=== PATIENT | female | born 1940 | race Caucasian/White ===

== ENCOUNTER 2019-06-20 12:13 | Emergency (ER) | payer MEDICARE ==
--- NOTE | 2019-06-20 12:53 | RAD ---
XR Chest 1 View Portable HISTORY: Shortness of breath COMPARISON: 02/20/2014 study FINDINGS: Heart size appears slightly enlarged with atherosclerotic changes of aorta. COPD changes ar e present. Bilateral breast augmentation is noted. IMPRESSION: Borderline to minimal cardiomegaly with chronic lung change.
[2019-06-20 12:56] LABS: #Basophils 0.1 thou/uL (0.0-0.2); #Lymphocytes 1.1 thou/uL (1.20-3.40); #Monocytes 0.4 thou/uL (0.11-0.59); #Neutrophils 3.2 thou/uL (1.40-6.50); %Basophils 2.2 % (0.0-1.0); %Eosinophils 0.8 % (0.0-10.0); %Lymphocytes 22.8 % (21.0-51.0); %Neutrophils 66.3 % (42.0-75.0); Hemoglobin 13.9 g/dL (12.0-16.0); Mean Corpuscular HGB CONC 33.9 g/dL (32.0-36.0); Mean Corpuscular Hemoglobin 34.4 pg (27.0-31.0); Mean Platelet Volume 8.7 fL (7.4-10.4); Platelet Count 187 thou/uL (130-400); Red Blood Cell (RBC) Count 4.04 mill/uL (4.20-5.40); White Blood Cell (WBC) Count 4.9 thou/uL (4.8-10.8)
[2019-06-20 13:22] LABS: ALT (SGPT) 21 U/L (8-55); AST (SGOT) 19 U/L (5-34); Albumin 4.5 g/dL (3.4-4.8); Alkaline Phosphatase 89 U/L (40-110); Anion Gap 13 mmol/L (10-20); BUN (Urea Nitrogen) 12 mg/dL (9.8-20.1); Bilirubin, Total 0.3 mg/dL (0.2-1.2); Calc. Creatinine Clearance 0 mL/min (70-130); Calcium 9.6 mg/dL (7.8-10.44); Carbon Dioxide 25 mmol/L (23-31); Chloride 105 mmol/L (98-107); Estimated GFR-MDRD 78; Glucose 116 mg/dL (83-110); Potassium 4.2 mmol/L (3.5-5.1); Protein, Total 7.5 g/dL (6.0-8.3); Sodium 139 mmol/L (136-145)
--- NOTE | 2019-06-20 13:57 | RAD ---
LUMBAR SPINE 3 VIEWS: Date: 06/20/19 HISTORY: Weakness. Back pain. FINDINGS: Lumbar vertebra maintain height and alignment. Mild to moderate degenerative changes. Facet hypertrop hy. Loss of disc space at L4-5 and L5-S1. No evidence of spondylolisthesis. IMPRESSION: Mild to moderate degenerative changes. POS: IVNONE
[2019-06-20 14:56] LABS: Bilirubin Negative (Negative); Blood, Urine 2+ (Negative); Clarity Clear (Clear); Glucose, Urine (Dipstick) Normal (Negative); Leukocyte Negative Leu/uL (Negative); Nitrite Negative (Negative); Protein, Urine (Dipstick) Negative (Neg-Trace); Squamous Epithelial 0-3 HPF (0-3); Urobilinogen Normal mg/dL (Less than 2); WBC/HPF 0-3 HPF (0-3)
[2019-06-20 15:09] LABS: Bacteria/HPF None Seen HPF (None Seen)
== END 2019-06-20 16:37 | disposition home or self-care (01) ==
LOC: ERS 12:13
DX: R53.1 Weakness (principal); R53.81 Other malaise; M54.9 Dorsalgia, unspecified; G89.29 Other chronic pain; G40.909 Epilepsy, unspecified, not intractable, without status epilepticus; F41.9 Anxiety disorder, unspecified; Z79.899 Other long term (current) drug therapy
CPT/HCPCS: 36415; 71045; 72100; 80053; 80185; 81003; 81015; 84484; 85025; 93005